=== PATIENT | male | born 1965 | race Caucasian/White ===

== ENCOUNTER 2016-12-23 06:38 | Inpatient (IN) | payer BC ==
[~2016-12-23] VITALS: Ht 177.8 cm; Wt 118.0 kg
[2016-12-23] VITALS (10 sets, daily range): BP systolic 165–181; BP diastolic 91–121; PULSE 69–96; RESP 19–20; TEMP 98.3; Ht 177.8 cm; Wt 118.0 kg
[2016-12-23] MEDS ORDERED: NITROGLYCERIN 2% 1 GM OINT PKT TD STA (06:45)
[2016-12-23] MEDS ORDERED: ASPIRIN 81 MG TAB PO STA (06:45)
[2016-12-23] MEDS ORDERED: NITROGLYCERIN (SL) 0.4 MG TAB SL PRN ×2 (07:00→13:30)
--- NOTE | 2016-12-23 07:12 | RADRPT ---
PROCEDURE: XR Chest. CLINICAL INDICATION: Chest pain TECHNIQUE: A single AP view of the chest was obtained. COMPARISON: None. FINDINGS: No focal airspace opacification, pleural effusion or pneumothorax is seen. The cardiomediastinal si lhouette is within normal limits for size. The osseous structures are unremarkable. IMPRESSION: No radiographic evidence of acute cardiopulmonary disease. RPTAT: HH .Sintia Herbert MD, MD Date Time Electronically viewed and signed by .Sintia Herbert MD, on 12/23/2016 07:12 .G/
[2016-12-23] MEDS ORDERED: VALS160T20 PO (07:13)
[2016-12-23] MEDS ORDERED: ESOM40CA PO (07:13)
[2016-12-23 07:34] LABS: ADD SCAN DIFF NO
[2016-12-23 07:43] LABS: BASOPHILS % 0.4 % (0.0-2.0); EOSINOPHILS # 0.2 10^3/ul (0.0-0.5); EOSINOPHILS % 2.1 % (0.0-7.0); HEMATOCRIT 40.8 % (42.0-52.0); HEMOGLOBIN 13.6 g/dl (14.0-18.0); LYMPHOCYTES # 2.4 10^3/ul (0.8-2.9); LYMPHOCYTES % 34.1 % (15.0-51.0); MEAN CORPUSCULAR HGB CONC 33.3 g/dl (32.0-37.0); MEAN CORPUSCULAR VOLUME 84.1 fl (82.0-101.0); MEAN PLATELET VOLUME 10.1 fl (7.4-10.4); MONOCYTE # 0.4 10^3/ul (0.3-0.9); MONOCYTES % 5.5 % (0.0-11.0); NEUTROPHILS % 57.1 % (39.0-77.0); PLATELET COUNT 256 10^3/UL (140-415); RED BLOOD COUNT 4.85 10^6/ul (4.70-6.10); RED CELL DISTRIBUTION WIDTH 12.7 % (11.5-14.5); WHITE BLOOD COUNT 7.1 10^3/ul (4.8-10.8)
[2016-12-23 07:49] LABS: INR 1.04; PARTIAL THROMBOPLASTIN TIME 26.2 Sec (25.0-35.0); PROTIME 13.6 Sec (12.2-14.2); PT RATIO 1.1
[2016-12-23 07:59] LABS: CHLORIDE 103 mmol/L (97-110); POTASSIUM 3.1 mmol/L (3.5-5.1); SODIUM 146 mmol/L (135-144)
[2016-12-23 08:02] LABS: ANION GAP 17 (8-16); BLOOD UREA NITROGEN 10 mg/dl (7-20); CALCIUM 7.5 mg/dl (8.4-10.2); CARBON DIOXIDE 29 mmol/L (21-31); CREATININE 0.95 mg/dl (0.61-1.24); GLUCOSE 110 mg/dl (70-220)
[2016-12-23] MEDS ORDERED: POTASSIUM CHLORIDE (SR) 20 MEQ TAB PO STA ×2 (08:14→19:54)
[2016-12-23 08:18] LABS: TROPONIN-I < 0.010 ng/ml (0.00-0.12)
[2016-12-23] MEDS ORDERED: ONDANSETRON 4 MG INJ IV PRN (08:30)
[2016-12-23] MEDS ORDERED: ACETAMINOPHEN 325 MG TAB PO PRN ×2 (08:30→13:30)
[2016-12-23] MEDS ORDERED: hydrALAzine 20 MG INJ IV ONE (10:30)
[2016-12-23] MEDS ORDERED: LABETALOL HCL 20MG INJ IV ONE ×2 (11:30→13:30)
--- NOTE | 2016-12-23 11:30 | ERA ---
ER Documentation Chief Complaint Date/Time DATE: 12/23/16 TIME: 11:30 Chief Complaint chest pressure sudden onset non provoked since awakening,no diaphoresis/sob HPI Patient is a 51-year-old male with hypertension who presents with chest pain. His chest pain started this morning. It is a pressure-like pain in the mid sternal and midepigastric area. He feels like it is getting heavier and feels like "somebody is stepping on me". He has never had this before. Upon review of old medical records this is the patient's first visit to the emergency department. ROS All systems reviewed and are negative except as per history of present illness. Medications Home Meds Reported Medications Valsartan* (Diovan*) Unknown Strength Tablet, PO DAILY, TAB 12/23/16 Esomeprazole Mag Trihydrate (Nexium) 40 Mg Capsule.dr, 40 MG PO DAILY, #30 CAP 12/23/16 Allergies Allergies: Coded Allergies: No Known Allergy (Unverified , 12/23/16) PMhx/Soc Positive for hypertension Medical and Surgical Hx: pt denies Surgical Hx History of Surgery: No Anesthesia Reaction: No Hx Neurological Disorder: No Hx Respiratory Disorders: No Hx Cardiac Disorders: No Hx Psychiatric Problems: No Hx Miscellaneous Medical Probl: No Hx Alcohol Use: No (occasionally) Hx Substance Use: No Hx Tobacco Use: Yes Smoking Status: Smoker,current status unk FmHx Family History: No coronary disease Physical Exam Vitals Vital Signs Date Time Temp Pulse Resp B/P Pulse Ox O2 Delivery O2 Flow Rate FiO2 12/23/16 10:02 Nasal Cannula 2.0 12/23/16 09:59 69 20 177/121 97 Nasal Cannula 2.0 12/23/16 09:45 71 12/23/16 07:28 74 18 181/112 100 Nasal Cannula 2.0 12/23/16 06:56 Nasal Cannula 2 12/23/16 06:42 97.6 114 20 197/109 98 Physical Exam Const: No acute distress Head: Atraumatic Eyes: Normal Conjunctiva ENT: Normal External Ears, Nose and Mouth. Neck: Full range of motion..~ No meningismus. Resp: Clear to auscultation bilaterally Cardio: Regular rate and rhythm, no murmurs Abd: Soft, non tender, non distended. Normal bowel sounds Skin: No petechiae or rashes Back: No midline or flank tenderness Ext: No cyanosis, or edema Neur: Awake and alert Psych: Normal Mood and Affect Result Diagram: 12/23/1671812/23/16718 Results 24 hrs Laboratory Tests Test 12/23/16 07:19 Activated Partial Thromboplast Time 26.2Sec Anion Gap 17 Basophils # 0.010^3/ul Basophils % 0.4% Blood Urea Nitrogen 10mg/dl Calcium Level 7.5mg/dl Carbon Dioxide Level 29mmol/L Chloride Level 103mmol/L Creatinine 0.95mg/dl Eosinophils # 0.210^3/ul Eosinophils % 2.1% Glucose Level 110mg/dl Hematocrit 40.8% Hemoglobin 13.6g/dl INR International Normalized Ratio 1.04 Lymphocytes # 2.410^3/ul Lymphocytes % 34.1% Mean Corpuscular Hemoglobin 28.0pg Mean Corpuscular Hemoglobin Concent 33.3g/dl Mean Corpuscular Volume 84.1fl Mean Platelet Volume 10.1fl Monocytes # 0.410^3/ul Monocytes % 5.5% Neutrophils # 4.010^3/ul Neutrophils % 57.1% Nucleated Red Blood Cells # 0.010^3/ul Nucleated Red Blood Cells % 0.0/100WBC Platelet Count 08781^3/UL Potassium Level 3.1mmol/L Prothrombin Time 13.6Sec Prothrombin Time Ratio 1.1 Red Blood Count 4.8510^6/ul Red Cell Distribution Width 12.7% Sodium Level 146mmol/L Troponin I < 0.010ng/ml White Blood Count 7.110^3/ul Current Medications Medications (Trade) Dose Ordered Sig/Filipe Route PRN Reason Start Time Stop Time Status Last Admin Dose Admin Aspirin (Aspirin) 162 mg ONCE STAT PO 12/23/16 06:45 12/23/16 06:46 DC 12/23/16 07:23 Nitroglycerin (Nitroglycerin 2% Oint) 1 inch ONCE STAT TD 12/23/16 06:45 12/23/16 06:46 DC 12/23/16 07:23 Nitroglycerin (Nitroglycerin (Sl Tab) 0.4 Mg) 1 tab Q5M UP TO 3 DOSES PRN SL CHEST PAIN 12/23/16 07:00 Potassium Chloride (Klor-Con 20) 40 meq ONCE STAT PO 12/23/16 08:14 12/23/16 08:22 DC 12/23/16 08:33 Ondansetron HCl (Zofran Inj) 4 mg ER BRIDGE PRN IV NAUSEA AND/OR VOMITING 12/23/16 08:30 12/24/16 08:29 Acetaminophen (Tylenol Tab) 650 mg ER BRIDGE PRN PO MILD PAIN/FEVER 12/23/16 08:30 12/24/16 08:29 Hydralazine HCl (Apresoline) 10 mg ONCE ONCE IV 12/23/16 10:30 12/23/16 10:31 DC 12/23/16 10:31 Labetalol HCl (Labetalol) 20 mg ONCE ONCE IV 12/23/16 11:30 12/23/16 11:31 DC 12/23/16 11:09 Procedures/MDM EKG #1 read by me: Rate/Rhythm: Regular rate and rhythm at a rate of 93 Intervals: Normal Impression: No evidence of ischemia or arrhythmia EKG #2 read by me: Rate/Rhythm: Regular rate and rhythm at a rate of 79 Intervals: Normal Impression: No evidence of ischemia or arrhythmia Smoking Cessation Therapy: Pt. was lectured for greater than 3 minutes on the health risks of continued smoking and the benefits of cessation. Chest x-ray negative per radiology. Patient is a 51-year-old male with hypertension and smoking who presents with chest pain and hypertension. He has needed hydralazine and labetalol for his elevated blood pressure. He was given aspirin and nitroglycerin for his chest pain. He had a low potassium and he was given potassium by mouth. I believe the patient requires admission for acute coronary syndrome. I doubt pneumonia, pneumothorax, pulmonary embolism, or aortic dissection. The patient will be admitted to a telemetry bed. I have spoken to Dr. Ledesma for admission as the patient does not have a primary doctor that admits to [facility] and has never been admitted before. Critical Care: Time: 35 minutes excluding all billable procedures. Treatments/Evaluations: Close monitoring and treatment of unstable vital signs, cardiorespiratory, and neurologic status, while maintaining tight balance of fluid, respiratory, and cardiac interventions. Observation Note: Time: 4 hours Family Hx: Negative for coronary disease Evaluation: Multiple exams showed improving symptoms and no evidence of clinical decompensation. Departure Diagnosis: Primary Impression: Hypertension Qualified Code: I10 - Essential hypertension Additional Impressions: Chest pain Qualified Code: R07.9 - Chest pain, unspecified type Hypokalemia Condition: Serious PARAS BLACK MD Dec 23, 2016 11:30
[2016-12-23] MEDS ORDERED: NACL 0.9% 3 ML SYG IV SCH (13:30)
[2016-12-23] MEDS ORDERED: ONDANSETRON 4 MG TAB PO PRN (13:30)
[2016-12-23] MEDS ORDERED: LORAZEPAM 0.5 MG TAB PO PRN (13:30)
[2016-12-23] MEDS ORDERED: HYDROCODONE/APAP (5/325) TAB PO PRN (13:30)
[2016-12-23] MEDS ORDERED: morphine 2 MG INJ IV PRN (13:30)
[2016-12-23] MEDS ORDERED: DOCUSATE SODIUM 100 MG CAP PO PRN (13:30)
[2016-12-23 13:40] LABS: CREATINE KINASE 76 IU/L (23-200)
[2016-12-23 13:53] LABS: TROPONIN-I < 0.010 ng/ml (0.00-0.12)
[2016-12-23 13:54] LABS: CK-MB 0.59 ng/ml (0.0-2.4)
--- NOTE | 2016-12-23 15:09 | RADRPT ---
Echocardiogram Report Patient Name: BRIGHT ANDRADE Gender: Male Date: 1965 Study Date: 23-Dec-2016 Watch Supervisor: Jocelyn Silveira RDCS Location: ER Ref. Physician: MADYSON MONTES Quality: Good Procedures: Transthoracic echocardiogram with complete 2D, M-Mode, and doppler examination. Indications: Chest Pain. 2D/M Mode Doppler Measurement Value Normal Ranges Measurement Value Normal Ranges LVIDd 2D 4.3 3.5 - 5.6 cm AV Peak Darwin 1.4 m/sec LVIDs 2D 2.9 2.1 - 4.1 cm AV Peak PG 8.2 mmHg LVPWd 2D 1.3 0.6 - 1.1 cm LVOT Peak Darwin 1.0 m/sec IVSd 2D 1.3 0.6 - 1.1 cm LVOT Peak PG 3.9 mmHg AoR Diam 2D 3.2 2.0 - 3.7 cm MV E Peak Darwin 0.9 m/sec EDV 2D 82.4 cm3 MV A Peak Darwin 0.9 m/sec ESV 2D 25.4 cm3 MV E/A 1.0 LA Dimen 2D 3.3 2.3 - 4.0 cm MV Decel Time 157 msec MV Decel Luce 6 MV E/A 1.0 Findings Left Ventricle: Normal left ventricular systolic function. Normal left ventricular cavity size. Mild concentric left ventricular hypertrophy. Ejection fraction is visually estimated at 65 %. Tissue Doppler/Mitral Doppler indices are consistent with impaired relaxation (Stage I diastolic dysfunction). Right Ventricle: Normal right ventricular size. Normal right ventricular systolic function. Left Atrium: The left atrium is normal in size. Right Atrium: The right atrium is normal in size. Mitral Valve: Normal appearance and function of the mitral valve with trace physiologic regurgitation. Aortic Valve: No significant aortic stenosis or insufficiency. Aortic cusps appear mildly calcified. Tricuspid Valve: Normal appearance and function of the tricuspid valve with trace physiologic regurgitation. Pulmonic Valve: Normal pulmonic valve appearance. Pericardium: Normal pericardium with no significant pericardial effusion. Aorta: Normal aortic root. IVC: Normal size and normal respiratory collapse consistent with normal right atrial pressure. Conclusions 1.Normal left ventricular systolic function. Normal left ventricular cavity size. Mild concentric left ventricular hypertrophy. Ejection fraction is visually estimated at 65 %. Tissue Doppler/Mitral Doppler indices are consistent with impaired relaxation (Stage I diastolic dysfunction). 2.Normal appearance and function of the mitral valve with trace physiologic regurgitation. 3.No significant aortic stenosis or insufficiency. Aortic cusps appear mildly calcified. 4.Normal appearance and function of the tricuspid valve with trace physiologic regurgitation. Electronically Signed By: Marcos Burroughs 23-Dec-2016 15:08:10 -0800 Patient Name: BRIGHT ANDRADE Study Date: 23-Dec-2016 [id number]
--- NOTE | 2016-12-23 15:22 | HP ---
Date/Time of Note Date/Time of Note DATE: 12/23/16 TIME: 15:14 Assessment/Plan VTE Prophylaxis VTE Prophylaxis Intervention: LMWH Lines/Catheters IV Catheter Type (from Nrs): Saline Lock Urinary Cath still in place: No Assessment/Plan Chief Complaint/Hosp Course Assessment and plan 1. Atypical chest pain, with negative EKG and troponin Obtain serial troponin, lipid panel, 2D echocardiogram Place the patient on aspirin, nitroglycerin, and morphine Cardiology has been consulted follow his recommendation 2. Uncontrolled hypertension Secondary to noncompliance of medication Patient has been started on metoprolol 3. Nicotine dependency Smoking cessation was advised, patient has been started on nicotine patch DVT prophylaxis: Lovenox We will continue monitor patient closely for recommendation management treatment as clinical course Problems: HPI/ROS Admit Date/Time Admit Date/Time 12/23/16 Hx of Present Illness Chief complaint: Chest discomfort ROS This is an 51-year-old gentleman with past medical history hypertension not compliant with his medication and nicotine dependency and obesity home presents to [facility] secondary to having chest discomfort described at chest pressure which started this morning after he had his coffee and smoke 1 cigarette. Patient EKG did not show any acute ST elevation or depression Ischemia troponin was found to be negative. His blood pressure was found to be elevated with systolic blood pressures greater than 200 and he was treated with dose of labetalol which at this time decrease his blood pressure to 169 systolic. He was also treated with aspirin and nitroglycerin which improved the chest pain during the course of emergency room. At this time patient denies of any chest pain or shortness of breath or any other discomfort Const: Negative for fever, chills, weight gain or weight loss, fatigue, or diaphoresis Eyes : No pain discharge or redness or change in visual acuity ENT: No pain, sore throat, congestion, congestion, dysphagia or discharge Respiratory: No shortness of breath, cough, sputum, wheezing, or pleuritic pain Cardiovascular: Chest pressure without chest pain, palpitation, PND, or edema GI : no change in appetite, abdominal pain, nausea, vomiting, diarrhea, constipation, or change in the color his stool Genitourinary: No dysuria, hematuria, flank pain , discharge or CVA tenderness Musculoskeletal: No joint pain, back pain, neck pain, restricted range of motion in neck or joints Skin: No rash, bruising or hives Neuro: No headache, dizziness, syncope, seizure, focal weakness Endocrine: No polyuria, polydipsia, temperature intolerance Psych: No hallucination, depression, anxiety or suicidal ideation PMH/Family/Social Past Medical History Smoking Hypertension Noncompliant with medication Medical History: hypertension Past Surgical History Past Surgical Hx: no surgical history Family History Significant Family History: hypertension Social History Alcohol Use: rarely Smoking Status: Current every day smoker Drug Use: none Exam/Review of Systems Vital Signs Vitals Vital Signs Date Time Temp Pulse Resp B/P Pulse Ox O2 Delivery O2 Flow Rate FiO2 12/23/16 12:12 98.3 85 18 169/111 97 Nasal Cannula 2.0 Exam Exam General: The patient is moderately obese, Not in acute distress. HEENT: Atraumatic, normocephalic. The pupils are equal and round . Neck: Supple with full range of motion. Chest: Normal expansion of the thorax during inspiration Lungs: Clear to auscultation bilaterally Heart: Normal S1-S2, Regular rhythm and rate. Abdomen: Soft , nontender, nondistended , bowel sounds are present. Extremities: Normal to inspection, no edema no cyanosis Neurologic: Normal mental status,The patient is awake, alert and oriented . Labs Result Diagram: 12/23/1671812/23/16718 Medications Medications Current Medications Lorazepam (Ativan) 0.5 mg Q8H PRN PO ANXIETY; Start 12/23/16 at 13:30 Ondansetron HCl (Zofran Tab) 4 mg Q6H PRN PO NAUSEA AND/OR VOMITING; Start at 13:30 Aspirin (Aspirin) 81 mg DAILY PO ; Start 12/24/16 at 09:00 Nitroglycerin (Nitroglycerin (Sl Tab) 0.4 Mg) 1 tab Q5M PRN SL CHEST PAIN; Start 12/23/16 at 13:30 Acetaminophen (Tylenol Tab) 650 mg Q6H PRN PO PAIN LEVEL 1-3 OR FEVER; Start at 13:30 Acetaminophen/ Hydrocodone Bitart ([place] (5/325)) 1 tab Q6H PRN PO PAIN LEVEL 4 -6; Start 12/23/16 at 13:30 Morphine Sulfate (morphine) 1 mg Q4H PRN IV PAIN LEVEL 7-10; Start 12/23/16 at 13:30 Docusate Sodium (Colace) 100 mg Q12H PRN PO CONSTIPATION; Start 12/23/16 at 13: 30 Pantoprazole (Protonix Tab) 40 mg DAILY@06 PO ; Start 12/24/16 at 06:00 Enoxaparin Sodium (Lovenox) 40 mg DAILY SC ; Start 12/24/16 at 09:00 Nicotine (Nicoderm 14 Mg/ 24hr) 1 patch DAILY TRANSDERM ; Start 12/24/16 at 09: 00 MADYSON MONTES MD Dec 23, 2016 15:22
[2016-12-23] MEDS ORDERED: AMLODIPINE 5 MG TAB PO ONE (16:30)
[2016-12-23] MEDS ORDERED: hydrALAzine 20 MG INJ IV PRN (20:00)
[2016-12-23 20:18] LABS: CREATINE KINASE 69 IU/L (23-200)
[2016-12-23 20:39] LABS: CK-MB 0.63 ng/ml (0.0-2.4); TROPONIN-I < 0.012 ng/ml (0.00-0.12)
[2016-12-23] MEDS ORDERED: METOPROLOL 25 MG TAB PO SCH (21:00)
[2016-12-24] VITALS (11 sets, daily range): BP systolic 137–171; BP diastolic 62–104; PULSE 73–85; RESP 18–19
[2016-12-24] MEDS ORDERED: LABETALOL HCL 20MG INJ IV ONE (01:00)
[2016-12-24 01:43] LABS: CREATINE KINASE 68 IU/L (23-200)
[2016-12-24 01:55] LABS: CK-MB 0.53 ng/ml (0.0-2.4)
[2016-12-24 01:57] LABS: TROPONIN-I < 0.012 ng/ml (0.00-0.12)
[2016-12-24] MEDS ORDERED: PANTOPRAZOLE (EC) 40 MG TAB PO SCH (06:00)
--- NOTE | 2016-12-24 07:06 | CONS ---
DATE OF ADMISSION: 12/23/2016 DATE OF CONSULTATION: 12/23/2016 TYPE OF CONSULTATION: Pulmonary. REFERRING PHYSICIAN: REASON FOR CONSULTATION: Chest pain. CHIEF COMPLAINT: Chest pressure. HISTORY OF PRESENT ILLNESS: Thank you for the referral of this patient. Discussion with patient, mary alice romero of the chart. This is a pleasant 51-year-old gentleman, no past cardiac history, but history of hypertension, currently not taking any medication, presented with , this morning he had segundo re anterior chest pressure. Could not explain exacerbating factors to me. It was severe at the arlin e, but has resolved when he got to the emergency room. Currently, the patient is chest pain-free. Patient also found to be severely hypertensive. The patient said he has been diagnosed with hyperte nsion a while ago. He was supposed to be taking medication, but he ran out, but he never went back to fill it in. PAST MEDICAL HISTORY: Hypertension, history of gastroesophageal reflux disease. MEDICATIONS AT HOME: Nexium sometimes takes. SOCIAL HISTORY: The patient does actively smoke. Denies heavy alcohol, drug abuse. FAMILY HISTORY: No reported coronary artery disease. ALLERGIES: NO REPORTED ALLERGIES. MEDICATIONS AT HOME: Nexium as needed. REVIEW OF SYSTEMS: He denied all other except for the above-mentioned. PHYSICAL EXAMINATION: VITAL SIGNS: Temperature 98.3, heart rate 85, blood pressure 169/111, respiration rate of 18, satur ating 97%. HEENT: Normocephalic, atraumatic. Pupils are equal. CARDIOVASCULAR: Regular rate and rhythm. Systolic murmur. PULMONARY: With no wheezes anteriorly. GASTROINTESTINAL: Soft, nontender. EXTREMITIES: No significant lower extremity edema. NEUROLOGIC: Awake and alert . VASCULAR: Bilateral radial symmetrical. PSYCHIATRIC: Appears to be calm and pleasant. DIAGNOSTIC DATA: EKG was personally reviewed, showed normal sinus rhythm, normal ECG. Chest x-ray showed no acute cardiopulmonary disease. Echocardiogram was personally reviewed, which showed navya l LV size and ejection fraction of 65%. There is mild LVH noted and grade I diastolic dysfunction. ASSESSMENT AND PLAN: 1. Chest pain syndrome, rule acute coronary syndrome. 2. Hypertension. 3. Hypertensive urgency, possibly with chest pain secondary to hypertension. 4. Rule out dyslipidemia. 5. Smoker. RECOMMENDATIONS: I will give a dose of Norvasc to the patient today. Start Carvedilol 6.25 p.o. b. i.d. Aspirin was initiated. Serial cardiac enzymes will be obtained to rule out myocardial infarct ion. Labs so far has had 2 troponins that have been negative. Potassium was low at 3.1 and is bein g replaced already. Lexiscan test will be done tomorrow if the repeat cardiac enzymes were negative . Thank you for this referral. We will continue to follow along with you. Dictated By: SEAMUS FISCHER/DIAMOND Conf#: [id number] DID#: [id number]
[2016-12-24 08:53] LABS: ADD SCAN DIFF NO
[2016-12-24 08:58] LABS: BASOPHILS % 0.3 % (0.0-2.0); EOSINOPHILS # 0.1 10^3/ul (0.0-0.5); HEMATOCRIT 41.7 % (42.0-52.0); HEMOGLOBIN 13.8 g/dl (14.0-18.0); LYMPHOCYTES # 1.8 10^3/ul (0.8-2.9); MEAN CORPUSCULAR HEMOGLOBIN 27.8 pg (29.0-33.0); MEAN CORPUSCULAR HGB CONC 33.1 g/dl (32.0-37.0); MEAN CORPUSCULAR VOLUME 84.1 fl (82.0-101.0); MONOCYTE # 0.5 10^3/ul (0.3-0.9); MONOCYTES % 6.1 % (0.0-11.0); NEUTROPHIL # 6.4 10^3/ul (1.6-7.5); NEUTROPHILS % 72.2 % (39.0-77.0); PLATELET COUNT 253 10^3/UL (140-415); RED BLOOD COUNT 4.96 10^6/ul (4.70-6.10); RED CELL DISTRIBUTION WIDTH 13.2 % (11.5-14.5); WHITE BLOOD COUNT 8.9 10^3/ul (4.8-10.8)
[2016-12-24] MEDS ORDERED: NICOTINE (14 MG/24 HR) PATCH TRANSDERM SCH (09:00)
[2016-12-24] MEDS ORDERED: ASPIRIN 81 MG TAB PO SCH (09:00)
[2016-12-24] MEDS ORDERED: ENOXAPARIN 40 MG/0.4 ML SYG SC SCH (09:00)
[2016-12-24 09:08] LABS: ALBUMIN 3.8 g/dl (3.3-4.9)
[2016-12-24 09:09] LABS: POTASSIUM 3.5 mmol/L (3.5-5.1)
[2016-12-24 09:10] LABS: CHOL/HDL RATIO 5.1 RATIO; CREATINE KINASE 49 IU/L (23-200)
[2016-12-24 09:11] LABS: ALBUMIN/GLOBULIN RATIO 1.02; BILIRUBIN,INDIRECT 0.5 mg/dl (0-1.1); BILIRUBIN,TOTAL 0.5 mg/dl (0.2-1.3); CREATININE 0.78 mg/dl (0.61-1.24); TOTAL PROTEIN 7.5 g/dl (6.1-8.1)
[2016-12-24 09:12] LABS: CALCIUM 8.3 mg/dl (8.4-10.2)
[2016-12-24 09:20] LABS: CK-MB 0.33 ng/ml (0.0-2.4); MAGNESIUM 0.6 mg/dl (1.7-2.5)
[2016-12-24 09:27] LABS: TROPONIN-I < 0.012 ng/ml (0.00-0.12)
[2016-12-24 09:42] LABS: THYROID STIMULATING HORMONE 1.28 MIU/L (0.465-4.680)
[2016-12-24] MEDS ORDERED: REGADENOSON 0.4 MG/5 ML SYG ONE (11:40)
[2016-12-24] MEDS ORDERED: MAGNESIUM SULFATE 4 GM/100 ML 100 ML IVPB ONE (12:00)
--- NOTE | 2016-12-24 12:19 | PDOCDIS ---
Discharge Instructions CONDITION Patient Condition: Good HOME CARE INSTRUCTIONS: Diet Instructions: Low Fat /Cholesterol ACTIVITY: Activity Restrictions: No Restrictions FOLLOW UP/APPOINTMENTS Appointments Follow-up with primary care physician as outpatient MADYSON MONTES MD Dec 24, 2016 12:19
[2016-12-24] MEDS ORDERED: CARV25TA79 PO (12:23)
[2016-12-24] MEDS ORDERED: ASPI81TA3 PO (12:23)
[2016-12-24] MEDS ORDERED: MAGN400T27 PO (12:23)
[2016-12-24] MEDS ORDERED: Nicotine (14 Mg/24 Hr) TRANSDERM (12:23)
[2016-12-24] MEDS ORDERED: LISI-313 PO (12:23)
[2016-12-24] MEDS ORDERED: SPIR25TA PO (12:23)
--- NOTE | 2016-12-24 12:29 | TMLRPT ---
DATE: 12/24/2016 LEXISCAN STRESS TEST INDICATION: Chest pain. DESCRIPTION: Lexiscan was performed as per protocol. FINDINGS: 1. Baseline electrocardiogram showed normal sinus rhythm, with no significant ischemia. 2. Heart rate at baseline is 69, blood pressure 170/110. Heart rate at peak stress 99, blood press ure 161/103. 2. No significant ischemic ST changes are seen. 3. No frequent arrhythmia was seen. CONCLUSION: Completion of Lexiscan stress test per protocol. See Nuclear Medicine results for peter l report. Dictated By: SEAMUS ORTIZ MD AV/NTS Conf#: [id number] DID#: [id number] CC: KEMI GALVAN MD;*End*
--- NOTE | 2016-12-24 12:29 | PN ---
DATE: 12/24/2016 CARDIOLOGY FOLLOWUP SUBJECTIVE: Discussed with the staff. Rhythm strip was reviewed. The patient with no chest pain o r pressure. No palpitation. His blood pressure is still elevated, but is feeling better now. MEDICATIONS: Reviewed. PHYSICAL EXAMINATION: VITAL SIGNS: Temperature 98.5, heart rate of 76, blood pressure 159/94, respiration rate of 18, sat urating 93%. HEENT: Normocephalic, atraumatic. No acute distress. Pupils equal and round. CARDIOVASCULAR: Regular rate and rhythm, systolic murmur. PULMONARY: With no wheezes, no rhonchi. GASTROINTESTINAL: Soft, nontender. EXTREMITIES: No significant lower extremity edema. NEUROLOGIC: Awake, alert. PSYCHIATRIC: Calm and pleasant. LABORATORY: WBC of 8.9, hemoglobin 13.8, platelet of 253. Sodium 144, potassium 3.5, BUN of 7, cre atinine 0.78, glucose 114. Mag is 0.6. LDL 107, HDL of 32. TSH 1.28. ASSESSMENT: 1. Chest pain syndrome, rule acute coronary syndrome. 2. Hypertension. 3. Hypokalemia. 4. Dyslipidemia. 5. Smoker. RECOMMENDATIONS: I will increase the patient's Coreg to 25 b.i.d. Aspirin will be continued. Lexiscan will be done today. I will start the patient on Aldactone. Th ere is a possibility of hyperaldosteronism, which would explain his severe hypertension. The patien t advised to follow up with me as an outpatient. Dictated By: SEAMUS FISCHER/DIAMOND Conf#: [id number] DID#: [id number]
[2016-12-24] MEDS ORDERED: SPIRONOLACTONE 25 MG TAB PO SCH (12:30)
--- NOTE | 2016-12-24 12:48 | DS ---
DATE OF ADMISSION: 12/23/2016 DATE OF DISCHARGE: 12/24/2016 CONSULTANTS: Marcos Burroughs MD PROCEDURES: 1. A 2D echocardiogram. 2. Cardiolite stress test. DIAGNOSES: 1. Chest pain. Acute coronary syndrome was ruled out with negative troponin. Lipid panel is withi n normal limits. 2. Uncontrolled hypertension secondary to noncompliance with medication. The patient has been star john on Coreg, spironolactone and lisinopril. 3. Nicotine dependency. Smoking cessation has been advised. The patient has been placed on nicoti ne patch. MEDICATIONS: 1. Aspirin 81 mg. 2. Coreg 12.5 mg. 3. Nexium 40 mg. 4. Lisinopril 5 mg. 5. Magnesium oxide 400 mg 6. Aldactone 25 mg 7. Nicotine patch. ALLERGIES: NO KNOWN DRUG ALLERGIES. DISPOSITION: Home. DIET: Cardiac diet. HOSPITAL COURSE: This is a 51-year-old gentleman with past medical history of hypertension, noncomp liant with his medication, nicotine dependency and obesity who presents to [facility] secondary to having chest discomfort described as chest pressure that started in the morning aft er he had coffee and smoked 1 cigarette. The patient's EKG does not show any acute ST elevation or depression, no sign of ischemia. Troponin was found to be negative. The patient's blood pressure w as found to be elevated with systolic blood pressure of 197/109. The patient was treated with nitro glycerin and Zofran and a dose of labetalol in the course of the emergency room. The patient was se en and evaluated by the bottom brusher. The patient was started on metoprolol and then was transition ed to Coreg also was placed on Aldactone after cardiology recommended. A lipid panel was foun d to be in acceptable range with triglyceride 137, total cholesterol 166, LDL 107, HDL 32. TSH 1.28 0, free T4 1.28. Magnesium was found to be extremely low at 0.6. This morning, it was repleted wit h magnesium sulfate 4 grams. The rest of the electrolytes have been within normal limits. WBC 8.9, hemoglobin 13.8, hematocrit 41.7, platelets 253. Sodium 144, potassium 3.5, chloride 102, bicarbon ate 27, BUN 7, creatinine 0.70, glucose 114, calcium 8.3. LFTs all within normal limits. Serial tr oponin negative. The patient as stated above was started on aspirin and his blood pressure at this time is better controlled. He has been started per cardiology on Coreg and Aldactone, and also adde d low dose of lisinopril to his medical management. CONDITION AT TIME OF DISCHARGE: Stable. Dictated By: MADYSON AHUJA/NTS Conf#: [id number] DID#: [id number]
--- NOTE | 2016-12-24 13:44 | RADRPT ---
PROCEDURE: Lexiscan myocardial perfusion study CLINICAL INDICATION: 51 -year-old patient complaining of chest pain. TECHNIQUE: Lexiscan 0.4 mg intravenously separate acquisition gated myocardial perfusion SPECT usi ng Tc 99m Myoview 33.4 mCi intravenously at stress and Tc-99m Myoview, 11.3 mCi intravenously at res t was performed using the rest/stress sequence. Poststress Myoview SPECT images were obtained in th e supine position. COMPARISON: No prior studies. FINDINGS: Perfusion images reveal no evidence of perfusion defects. Lexiscan post stress gated SPECT images demonstrate no wall motion abnormalities. Focus of intensely increased sestamibi accumulation is visualized in the right lower lung on both re sting and stress images. IMPRESSION: 1. No evidence of perfusion defects. 2. No wall motion abnormalities. 3. The left ventricle ejection fraction at stress is 60%. 4. Focus of intense sestamibi accumulation in the right lower lung; a neoplastic lesion should be co nsidered in the differential diagnosis and further evaluation with CT scan of the chest is strongly recommended. A call report was made to Dr. Burroughs at 01:40 p.m. on December 24, 2016. RPTAT: HH .Yin Saul MD, Date Time Electronically viewed and signed by .Yin Saul MD, on 12/24/2016 13:43 .L/
--- NOTE | 2016-12-24 15:25 | CONS ---
Date/Time of Note Date/Time of Note DATE: 12/24/16 TIME: 15:20 Assessment/Plan Assessment/Plan Additional Assessment/Plan Chest x-ray was reviewed from yesterday which is totally clear. Assessment and recommendations; next 1. Patient admitted with chest pain with a negative Lexiscan scan as well as normal 2D echo. 2. History of hypertension. 3. Lexiscan showing strong radionuclide uptake in the right lower lobe area of unspecified significance at this point. Obtain a CT scan of chest without contrast. Continue current supportive care. Consultation Date/Type/Reason Admit Date/Time 12/23/16 Date of Consultation: Dec 24, 2016 Type of Consultation: Pulmonary Reason for Consultation Pulmonary consultation obtained for evaluation of abnormal radionuclide uptake in the right lower lobe with the patient had a Lexiscan scan done today. History present illness; patient is a very pleasant 41-year-old white male who came into the emergency room today with complaints of right chest pain which was brought on by the patient was having coffee at home the pain was described as pressure-like sensation lasted for couple of hours and then persisted by the patient was in the hospital however for the last several hours the patient is completely chest pain-free. He denies any prior episodes. The feeling is described as heavy pressure-like feeling without any associated shortness of breath diaphoresis nausea vomiting. There was no relation to any kind of chest movement denies any coughing wheezing or any recent strenuous activity. The patient underwent a Lexiscan today which is showing very strong radionuclide uptake in the right lower lobe area and the francisco-has been raised by the radiologist that a CT scan of the chest be done to rule out any underlying lung lesion. Patient denies any respiratory symptoms whatsoever. Past medical history; #1. History of hypertension. Patient however off medications. Next 2. Nausea any known coronary artery disease or any surgeries. Medications; reviewed. Allergies; none. Social history; patient is very scant smoker. But according to the patient by the patient did smoke heavily in the past. No history of alcohol or drug abuse. Family history; patient is has 2 children. Both parents are hypertensive. Occupational history; patient is a salesman. Review of systems; denies any headache, visual changes, seizures. Denies any hearing loss. Any sinus symptoms. Dysphagia, and aphasia, chest pain has completely subsided. Denies any shortness of breath, any chest any wheezing, any sputum production hemoptysis. Any abdominal pain nausea vomiting. Denies any edema, orthopnea, PND. General examination; middle-aged man currently in no distress. Awake and alert. Past Medical History Medical History: hypertension Past Surgical History Past Surgical Hx: no surgical history Social History Alcohol Use: rarely Smoking Status: Current every day smoker Drug Use: none Exam/Review of Systems Vital Signs Vitals Vital Signs Date Time Temp Pulse Resp B/P Pulse Ox O2 Delivery O2 Flow Rate FiO2 12/24/16 12:55 98.5 77 18 159/104 97 Room Air 12/23/16 12:12 2.0 Intake and Output 12/23/16 12/23/16 12/24/16 15:00 23:00 07:00 Intake Total 420 ml Balance 420 ml Exam HEENT examination; supple neck, no JVD. No lymphadenopathy. Midline trachea. Pharynx is clear. Patient has good dentition. Pupils are midsize reactive to light. Chest examination; clear to auscultation bilaterally. S1-S2 audible, no murmurs. Regular rhythm. Nontender chest wall. Abdomen examination; soft, nontender, nondistended. No organomegaly. Bowel sounds audible. Extremity examination; no peripheral edema. No clubbing. Pulses 2+ bilaterally. [employer]AF[employer] IN[employer] examination; no focal deficit. Results Result Diagram: 12/24/16 0840 12/24/16 0840 Results 24 hrs Laboratory Tests Test 12/23/16 19:40 12/24/16 01:09 12/24/16 08:40 Creatine Kinase 69 68 49 Creatine Kinase Index 0.9 0.8 0.7 Creatinine Kinase MB (Mass) 0.63 0.53 0.33 Troponin I < 0.012 < 0.012 < 0.012 Alanine Aminotransferase (ALT/SGPT) 30 Albumin 3.8 Albumin/Globulin Ratio 1.02 Alkaline Phosphatase 56 Anion Gap 19 H Aspartate Amino Transf (AST/SGOT) 17 Basophils # 0.0 Basophils % 0.3 Blood Urea Nitrogen 7 Calcium Level 8.3 L Carbon Dioxide Level 27 Chloride Level 102 Cholesterol Level 166 Cholesterol/HDL Ratio 5.1 Creatinine 0.78 Direct Bilirubin 0.00 Eosinophils # 0.1 Eosinophils % 1.0 Free Thyroxine 1.28 Globulin 3.70 H Glucose Level 114 HDL Cholesterol 32 Hematocrit 41.7 L Hemoglobin 13.8 L Indirect Bilirubin 0.5 LDL Cholesterol, Calculated 107 Lymphocytes # 1.8 Lymphocytes % 20.0 Magnesium Level 0.6 *L Mean Corpuscular Hemoglobin 27.8 L Mean Corpuscular Hemoglobin Concent 33.1 Mean Corpuscular Volume 84.1 Mean Platelet Volume 10.0 Monocytes # 0.5 Monocytes % 6.1 Neutrophils # 6.4 Neutrophils % 72.2 Nucleated Red Blood Cells # 0.0 Nucleated Red Blood Cells % 0.0 Platelet Count 253 Potassium Level 3.5 Red Blood Count 4.96 Red Cell Distribution Width 13.2 Sodium Level 144 Thyroid Stimulating Hormone (TSH) 1.280 Total Bilirubin 0.5 Total Protein 7.5 Triglycerides Level 137 White Blood Count 8.9 # Medications Medications Current Medications Lorazepam (Ativan) 0.5 mg Q8H PRN PO ANXIETY Last administered on 12/23/16 15: 25; Admin Dose 0.5 MG; Start 12/23/16 at 13:30 Ondansetron HCl (Zofran Tab) 4 mg Q6H PRN PO NAUSEA AND/OR VOMITING; Start at 13:30 Aspirin (Aspirin) 81 mg DAILY PO Last administered on 12/24/16 08:37; Admin Dose 81 MG; Start 12/24/16 at 09:00 Nitroglycerin (Nitroglycerin (Sl Tab) 0.4 Mg) 1 tab Q5M PRN SL CHEST PAIN; Start 12/23/16 at 13:30 Acetaminophen (Tylenol Tab) 650 mg Q6H PRN PO PAIN LEVEL 1-3 OR FEVER; Start at 13:30 Acetaminophen/ Hydrocodone Bitart ([place] (5/325)) 1 tab Q6H PRN PO PAIN LEVEL 4 -6; Start 12/23/16 at 13:30 Morphine Sulfate (morphine) 1 mg Q4H PRN IV PAIN LEVEL 7-10; Start 12/23/16 at 13:30 Docusate Sodium (Colace) 100 mg Q12H PRN PO CONSTIPATION; Start 12/23/16 at 13: 30 Pantoprazole (Protonix Tab) 40 mg DAILY@06 PO Last administered on 12/24/16 06 :23; Admin Dose 40 MG; Start 12/24/16 at 06:00 Enoxaparin Sodium (Lovenox) 40 mg DAILY SC Last administered on 12/24/16 13:55 ; Admin Dose 40 MG; Start 12/24/16 at 09:00 Nicotine (Nicoderm 14 Mg/ 24hr) 1 patch DAILY TRANSDERM ; Start 12/24/16 at 09: 00 Hydralazine HCl 10 mg 10 mg Q6H PRN IV ELEVATED BLOOD PRESSURE Last administered on 12/23/16 22:00; Admin Dose 10 MG; Start 12/23/16 at 20:00 Magnesium Sulfate (Magnesium Sulfate 4 Gm/100 ml) 100 ml @ 25 mls/hr ONCE ONCE IVPB Last administered on 12/24/16 13:54; Admin Dose 25 MLS/HR; Start at 12:00; Stop 12/24/16 at 15:59 Carvedilol (Coreg) 25 mg BID PO ; Start 12/24/16 at 21:00 Spironolactone (Aldactone) 25 mg DAILY PO Last administered on 12/24/16 13:54 ; Admin Dose 25 MG; Start 12/24/16 at 12:30 CINDY JAFFE Dec 24, 2016 15:25
--- NOTE | 2016-12-24 18:24 | RADRPT ---
PROCEDURE: CT Chest without contrast. CLINICAL INDICATION: Abnormal myocardial stress test scan. Possible lung mass. Chest pain. TECHNIQUE: CT scan of the chest without contrast was performed on a multidetector high-resolution CT scanner. Coronal and sagittal reformatted images were obtained from the axial source images. The total exam CTDI equals 15.50 mGy and the total exam DLP equals 613.73 mGy-cm. One or more of the following dose reduction techniques were used: - Automated exposure control. - Adjustment of the mA and/or kV according to patient size. - Use of iterative reconstruction technique. COMPARISON: Myocardial perfusion stress test performed today on 12/24/2016 FINDINGS: The lungs are clear. Minor dependent basilar subsegmental atelectasis is present. No focal opacifica tion, effusion, pneumothorax, edema, or nodules are seen. There is no pulmonary infiltrate. No mas s lesion to suggest neoplasm is identified. The central tracheobronchial tree is clear. The abnorma lity seen on the previous myocardial perfusion scan probably was a contamination artifact. The mediastinum is unremarkable without evidence for mass or lymphadenopathy. The vascular structur es of the mediastinum are normal in course and caliber. The heart size is normal without evidence f or pericardial thickening or effusion. The axillary regions, subpectoral regions, and supraclavicular regions are all unremarkable. The cabrales rrounding chest wall is unremarkable. Imaging obtained through the upper abdomen reveals fatty infi ltration of the liver. The surrounding osseous structures are unremarkable. No osteolytic or osteob lastic lesion is detected. IMPRESSION: 1. Unremarkable CT scan of the chest. 2. No mass, lymphadenopathy, or focal acute infiltrate. RPTAT: HMJB .Jeremiah Hendrix MD, MD Date Time Electronically viewed and signed by .Jeremiah Hendrix MD, MD on 12/24/2016 18:24 .B/
== END 2016-12-24 20:15 | disposition home or self-care (01) | DRG 305 ==
LOC: E/R 06:38 → MS4 08:27
PROVIDERS: ADMIT Internal Medicine; ATTEND Internal Medicine
DX: I10 Essential (primary) hypertension (principal); E87.6 Hypokalemia; R07.9 Chest pain, unspecified; F17.200 Nicotine dependence, unspecified, uncomplicated; Z91.14 Patient's other noncompliance with medication regimen; Z79.82 Long term (current) use of aspirin
CPT/HCPCS: 36415; 71010; 71250; 78452; 80048; 80053; 80061; 82550; 82553; 83735; 84439; 84443; 84484; 85025; 85610; 85730; 93005; 93017; 93306; 96374; 96375; 96376; A9500; A9505; J0360; J1650; J2785